=== PATIENT | male | born 1930 | race Caucasian/White ===

== ENCOUNTER → 2016-07-17 | Outpatient (CLI) | payer MEDICARE, OTHER | END | disposition home or self-care (01) | LOC: PCVCCLINIC 13:36 | PROVIDERS: ATTEND Internal Medicine Cardiovascular Disease | DX: I10 Essential (primary) hypertension (principal); E78.00 Pure hypercholesterolemia, unspecified; F03.90 Unspecified dementia, unspecified severity, without behavioral disturbance, psychotic disturbance, mood disturbance, and anxiety; I25.10 Atherosclerotic heart disease of native coronary artery without angina pectoris; I35.8 Other nonrheumatic aortic valve disorders; E11.9 Type 2 diabetes mellitus without complications; Z95.1 Presence of aortocoronary bypass graft | CPT/HCPCS: 80061; 93005; G0463 ==

== ENCOUNTER → 2016-08-14 | Outpatient (CLI) | payer MEDICARE | END | disposition home or self-care (01) | LOC: PCVCIMAG 14:59 | PROVIDERS: ATTEND Internal Medicine Cardiovascular Disease | DX: I25.10 Atherosclerotic heart disease of native coronary artery without angina pectoris (principal); E11.9 Type 2 diabetes mellitus without complications; I10 Essential (primary) hypertension; Z95.1 Presence of aortocoronary bypass graft | CPT/HCPCS: 93325; 93351 ==

== ENCOUNTER → 2017-05-07 | Outpatient (CLI) | payer MEDICARE | END | disposition home or self-care (01) | LOC: PCVCCLINIC 10:48 | DX: I25.810 Atherosclerosis of coronary artery bypass graft(s) without angina pectoris (principal); I12.9 Hypertensive chronic kidney disease with stage 1 through stage 4 chronic kidney disease, or unspecified chronic kidney disease; E11.22 Type 2 diabetes mellitus with diabetic chronic kidney disease; I70.1 Atherosclerosis of renal artery; N18.4 Chronic kidney disease, stage 4 (severe); G30.9 Alzheimer's disease, unspecified; F02.80 Dementia in other diseases classified elsewhere, unspecified severity, without behavioral disturbance, psychotic disturbance, mood disturbance, and anxiety; Z95.1 Presence of aortocoronary bypass graft; Z79.899 Other long term (current) drug therapy; Z79.82 Long term (current) use of aspirin | CPT/HCPCS: 80061; 93005; G0463 ==

== ENCOUNTER → 2018-02-06 | Outpatient (CLI) | payer MEDICARE | END | disposition home or self-care (01) | LOC: PCVCCLINIC 15:47 | PROVIDERS: ATTEND Internal Medicine Cardiovascular Disease | DX: I25.10 Atherosclerotic heart disease of native coronary artery without angina pectoris (principal); I10 Essential (primary) hypertension; E78.00 Pure hypercholesterolemia, unspecified; E11.9 Type 2 diabetes mellitus without complications; G30.9 Alzheimer's disease, unspecified; F02.80 Dementia in other diseases classified elsewhere, unspecified severity, without behavioral disturbance, psychotic disturbance, mood disturbance, and anxiety; R94.31 Abnormal electrocardiogram [ECG] [EKG]; Z95.1 Presence of aortocoronary bypass graft; Z79.899 Other long term (current) drug therapy | CPT/HCPCS: 80061; 93005; G0463 ==

== ENCOUNTER → 2018-10-31 | Outpatient (CLI) | payer MEDICARE | END | disposition home or self-care (01) | LOC: PCVCCLINIC 13:46 | PROVIDERS: ATTEND Internal Medicine Cardiovascular Disease | DX: I25.10 Atherosclerotic heart disease of native coronary artery without angina pectoris (principal); E78.00 Pure hypercholesterolemia, unspecified; G30.9 Alzheimer's disease, unspecified; F02.80 Dementia in other diseases classified elsewhere, unspecified severity, without behavioral disturbance, psychotic disturbance, mood disturbance, and anxiety; E11.9 Type 2 diabetes mellitus without complications; I10 Essential (primary) hypertension; Z95.1 Presence of aortocoronary bypass graft; Z79.82 Long term (current) use of aspirin; Z88.1 Allergy status to other antibiotic agents | CPT/HCPCS: 36415; 80061; 93005; G0463 ==